=== PATIENT | male | born 1990 | race Caucasian/White ===

== ENCOUNTER 2021-10-17 10:23 | Outpatient (REF) | payer OTHER, SELFPAY ==
--- NOTE | ~2021-10-17 | CT_ITS ---
EXAMINATION: CT ABDOMEN WITH CONTRAST CLINICAL INFORMATION: Chest pain. Elevated amylase and lipase. COMPARISON: None TECHNIQUE: Contiguous axial thin section helical images of the abdomen were performed following the administration of oral contrast and 85 mL of Omnipaque 350 intravenous contrast. The data set was reformatted in the coronal and sagittal planes and reviewed on an independent workstation. This CT examination was performed using dose optimization techniques as appropriate, variously including the following: *Automated exposure control *Adjustment of mA and/or kV according to patient size (this includes techniques or standardized protocols for targeted exams where dose is matched to indication/reason for exam; i.e. extremities or head) *Use of iterative reconstruction technique DLP: 210 mGy-cm FINDINGS: LUNG BASES: Normal LIVER, GALLBLADDER, AND BILIARY TREE: Normal PANCREAS: Normal SPLEEN: Normal ADRENAL GLANDS AND KIDNEYS: There is a 2 cm cyst in the left kidney. No imaging follow-up needed. The kidneys are otherwise normal. BOWEL LOOPS: Normal. The visualized appendix is normal. LYMPH NODES: Normal. VASCULAR: Unremarkable. BONES: Normal CT/CT abdomen w con IMPRESSION: 2 cm left renal cyst otherwise unremarkable exam. The pancreas is normal-appearing. Fleischner guidelines were followed.
[2021-10-17] MEDS: iohexoL 350 MG/ML 100 ML INFUS..BTL 85 ML IV (12:13)
[2021-10-17] MEDS: Barium Sulfate Oral (Berry) 450 ML ORAL.SUSP PO (12:14)
== END 2021-10-17 10:24 | disposition home or self-care (01) ==
LOC: HO.CT 10:23
PROVIDERS: Visit Provider Family Medicine
DX: R07.9 Chest pain, unspecified (principal); R74.8 Abnormal levels of other serum enzymes; N28.1 Cyst of kidney, acquired
CPT/HCPCS: 74160; Q9967